=== PATIENT | male | born 1930 | race Caucasian/White ===

== ENCOUNTER 2017-07-17 09:51 | Emergency (ER) | payer MEDICARE, BC ==
--- NOTE | 2017-07-17 11:21 | EDM.PDOC ---
ED HPI GENERAL MEDICAL PROBLEM - General Chief Complaint: Genitourinary Problem Stated Complaint: UTI? Time Seen by Provider: 07/17/17 11:11 Source of Information: Reports: Patient, RN Notes Reviewed History Limitations: Reports: No Limitations - History of Present Illness INITIAL COMMENTS - FREE TEXT/NARRATIVE: 86-year-old gentleman presents to the emergency department today with complaint of urinary tract symptomology, he states he's had frequency and urgency with some dysuria and now he's developed low back pain however the back pain sometimes will radiate into his left leg when he ambulates, he did have a urinary tract infection once about 20 years ago, states is been having symptoms for about 2 weeks however over the last 3 days it has progressively gotten worse. Back Pain Score (Numeric/FACES): 6 - Related Data Allergies Allergy/AdvReac Type Severity Reaction Status Date / Time No Known Allergies Allergy Verified 12/25/15 20:23 Home Meds: Home Meds Albuterol Sulfate [Proair Hfa] 2 puff IH Q6H PRN 03/22/15 [History] Aspirin 325 mg PO DAILY 03/22/15 [History] Cyclobenzaprine [Flexeril] 1 tab PO BEDTIME 03/22/15 [History] Hydrocodone/Acetaminophen [[place] 10-325] 1 tab PO Q4H PRN 03/22/15 [History] Metoprolol Tartrate 100 mg PO DAILY 03/22/15 [History] Naproxen 250 mg PO DAILY 03/22/15 [History] Nystatin [Nystatin Crm] 15 gm TOP BID 03/22/15 [History] Omeprazole 40 mg PO DAILY 03/22/15 [History] Travoprost [Travatan Z 0.004% Ophth Soln] 1 drop EYEBOTH BEDTIME 03/22/15 [ History] Tretinoin [Retin-A 0.025% Cream] 1 applic TOP BEDTIME 03/22/15 [History] amLODIPine [Norvasc] 5 mg PO DAILY 03/22/15 [History] Fluticasone/Vilanterol [Breo Ellipta 200-25 Mcg INH] 1 puff INH QPM 07/09/15 [ History] Umeclidinium [place] [Incruse Ellipta] 1 puff INH QAM 07/09/15 [History] Sulfamethoxazole/Trimethoprim [Bactrim Ds Tablet] 1 each PO BID #10 tablet 07/17 [Rx] Past Medical History HEENT History: Reports: Glaucoma, Hard of Hearing, Impaired Vision Cardiovascular History: Reports: Hypertension, SOB on Exertion Respiratory History: Reports: COPD Other Respiratory History: emphysema Gastrointestinal History: Reports: Cholelithiasis, GERD Genitourinary History: Reports: BPH, Prostate Disorder Other Genitourinary History: prostate cancer Musculoskeletal History: Reports: Other (See Below) Other Musculoskeletal History: rotator cuff Oncologic (Cancer) History: Reports: Malignant Melanoma, Prostate, Other (See Below) Other Oncologic History: gallbladder Dermatologic History: Reports: Melanoma Other Dermatologic History: skin cancer - Infectious Disease History Infectious Disease History: Reports: Chicken Pox, Measles, Mumps - Past Surgical History HEENT Surgical History: Reports: LASIK GI Surgical History: Reports: Cholecystectomy, EGD Male Surgical History: Reports: Prostatectomy, TURP-Transurethral Resection of Prostate Musculoskeletal Surgical History: Reports: Shoulder Surgery Social & Family History - Tobacco Use Smoking Status *Q: Former Smoker Years of Tobacco use: 30 Packs/Tins Daily: 1 Used Tobacco, but Quit: Yes Month/Year Tobacco Last Used: 30 years ago Second Hand Smoke Exposure: No - Caffeine Use Caffeine Use: Reports: Coffee - Recreational Drug Use Recreational Drug Use: No ED ROS GENERAL - Review of Systems Review Of Systems: See Below Constitutional: Reports: Fever (Feverish at home) HEENT: Reports: No Symptoms Respiratory: Reports: No Symptoms Cardiovascular: Reports: No Symptoms GI/Abdominal: Reports: No Symptoms : Reports: Dysuria, Flank Pain, Frequency, Urgency Musculoskeletal: Reports: Back Pain ED EXAM, RENAL/ - Physical Exam Exam: See Below Exam Limited By: No Limitations General Appearance: Alert, WD/WN, No Apparent Distress Respiratory/Chest: No Respiratory Distress GI/Abdominal: Soft, Non-Tender Back Exam: Normal Inspection, Paraspinal Tenderness (Lumbar region). No: CVA Tenderness (R), CVA Tenderness (L), Vertebral Tenderness Course - Vital Signs Last Recorded V/S: Last Vital Signs Temp 95.4 F 07/17/17 10:33 Pulse 74 07/17/17 10:33 Resp 17 07/17/17 10:33 BP 130/71 07/17/17 10:33 Pulse Ox 96 07/17/17 10:33 - Orders/Labs/Meds Labs: Laboratory Tests 07/17/17 Range/Units 10:32 Urine Color Yellow Urine Appearance Slightly cloudy Urine pH 5.0 (4.5-8.0) Ur Specific [place] 1.015 (1.008-1.030) Urine Protein Negative (NEGATIVE) mg/dL Urine Glucose (UA) Normal (NEGATIVE) mg/dL Urine Ketones Negative (NEGATIVE) mg/dL Urine Occult Blood Negative (NEGATIVE) Urine Nitrite Negative (NEGAITVE) Urine Bilirubin Negative (NEGATIVE) Urine Urobilinogen Normal (NORMAL) mg/dL Ur Leukocyte Esterase Negative (NEGATIVE) Urine RBC 0-5 (0-5) Urine WBC Not seen (0-5) Ur Epithelial Cells Rare Amorphous Sediment Rare Urine Bacteria Rare Urine Mucus Moderate Departure - Departure Time of Disposition: 11:20 Disposition: Home, Self-Care 01 Condition: Good Clinical Impression: Dysuria - Discharge Information Prescriptions: Sulfamethoxazole/Trimethoprim [Bactrim Ds Tablet] 1 each PO BID #10 tablet Referrals: Keyon Constantino MD [Primary Care Provider] - Additional Instructions: Start taking the antibiotics, please follow-up with your primary care provider for reevaluation in 3-5 days at which time the urine culture should be available for reassessment - Assessment/Plan Plan: Assessment Acuity = acute Site and laterality = frequency, dysuria, low back pain Etiology = unclear etiology Manifestations = none Location of injury = Home Lab values = urinalysis unremarkable cultures pending Plan I did discuss options with him because his symptomology didn't fit with where his back pain was happy was having frequency and dysuria elected to treat empirically with Bactrim DS 1 tab by mouth twice a day 10 days, a culture is pending should be back in 3-4 days at which time I want him to follow-up with his primary care for reevaluation This note was dictated using [employer] voice recognition software please call with any questions on syntax or nicole.
[2017-07-17 11:25] VITALS: BP 130/71
== END 2017-07-17 11:15 | disposition home or self-care (01) ==
LOC: JP.ED 09:51
DX: R30.0 Dysuria (principal); I10 Essential (primary) hypertension; Z79.899 Other long term (current) drug therapy; Z79.82 Long term (current) use of aspirin; Z87.891 Personal history of nicotine dependence
CPT/HCPCS: 81001; 87086; 99284

== ENCOUNTER 2018-05-10 04:28 | Emergency (ER) | payer MEDICARE, BC ==
[2018-05-10 04:49] VITALS: BP 109/83
--- NOTE | 2018-05-10 05:01 | EDM.PDOC ---
ED HPI GENERAL MEDICAL PROBLEM - General Chief Complaint: Gastrointestinal Problem Stated Complaint: BOWEL ISSUE Time Seen by Provider: 05/10/18 04:45 Source of Information: Reports: Patient, Old Records, RN History Limitations: Reports: No Limitations - History of Present Illness INITIAL COMMENTS - FREE TEXT/NARRATIVE: 87 yo male presents with constipation. Feels like there is stool that he cannot push out due to its diameter. He tried enemas, but cannot retain them. He has some abdominal discomfort. No fever. No vomiting. Appetite has been OK. BM's have been smaller than normal lately. Onset: Gradual Onset Date: 05/08/18 Duration: Day(s):, Getting Worse Location: Reports: Abdomen Quality: Reports: Pressure (mild, lower abdomen) Severity: Mild Improves with: Reports: None Worsens with: Reports: Other (time) Context: Reports: Other (on hydrocodone for pain relief) Associated Symptoms: Reports: No Other Symptoms. 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) (enema) lower abd Pain Score (Numeric/FACES): 2 - Related Data Allergies Allergy/AdvReac Type Severity Reaction Status Date / Time No Known Allergies Allergy Verified 04/06/18 14:03 Home Meds: Home Meds Albuterol Sulfate [Proair Hfa] 2 puff IH Q6H PRN 03/22/15 [History] Aspirin 325 mg PO Q48H 03/22/15 [History] Cyclobenzaprine [Flexeril] 0.5 - 1 tab PO BEDTIME 03/22/15 [History] Hydrocodone/Acetaminophen [[place] 10-325] 1 tab PO Q4H PRN 03/22/15 [History] Metoprolol Tartrate 100 mg PO DAILY 03/22/15 [History] Naproxen 250 mg PO DAILY 03/22/15 [History] Nystatin [Nystatin Crm] 15 gm TOP BID 03/22/15 [History] Omeprazole 40 mg PO DAILY 03/22/15 [History] Travoprost [Travatan Z 0.004% Ophth Soln] 1 drop EYEBOTH BEDTIME 03/22/15 [ History] Tretinoin [Retin-A 0.025% Cream] 1 applic TOP BEDTIME 03/22/15 [History] amLODIPine [Norvasc] 10 mg PO DAILY 03/22/15 [History] Umeclidinium [place] [Incruse Ellipta] 1 puff INH QAM 07/09/15 [History] Fluticasone/Vilanterol [Breo Ellipta 200-25 Mcg INH] 1 puff INH DAILY 05/10/18 [ History] Past Medical History HEENT History: Reports: Glaucoma, Hard of Hearing, Impaired Vision, Other (See Below) Other HEENT History: Dry throat syndrome Cardiovascular History: Reports: Hypertension, SOB on Exertion Respiratory History: Reports: COPD, Other (See Below) Other Respiratory History: emphysema Gastrointestinal History: Reports: Cholelithiasis, GERD Genitourinary History: Reports: BPH, Prostate Disorder, Other (See Below) Other Genitourinary History: prostate cancer Musculoskeletal History: Reports: Other (See Below) Other Musculoskeletal History: rotator cuff Psychiatric History: Reports: Anxiety Oncologic (Cancer) History: Reports: Malignant Melanoma, Prostate, Other (See Below) Other Oncologic History: gallbladder Dermatologic History: Reports: Melanoma, Other (See Below) Other Dermatologic History: skin cancer - Infectious Disease History Infectious Disease History: Reports: Chicken Pox, Measles - Past Surgical History HEENT Surgical History: Reports: LASIK GI Surgical History: Reports: Cholecystectomy, Colonoscopy, EGD, Hernia Repair/ Other Male Surgical History: Reports: Prostatectomy, TURP-Transurethral Resection of Prostate Musculoskeletal Surgical History: Reports: Shoulder Surgery Social & Family History - Tobacco Use Smoking Status *Q: Never Smoker - Caffeine Use Caffeine Use: Reports: Coffee - Recreational Drug Use Recreational Drug Use: No ED ROS GENERAL - Review of Systems Review Of Systems: See Below Constitutional: Reports: No Symptoms HEENT: Reports: No Symptoms Respiratory: Reports: No Symptoms Cardiovascular: Reports: No Symptoms Endocrine: Reports: No Symptoms GI/Abdominal: Reports: Abdominal Pain, Constipation. Denies: Black Stool, Bloody Stool, Diarrhea, Distension, Hematemesis, Hematochezia, Melena, Nausea, Vomiting : Reports: No Symptoms Musculoskeletal: Reports: No Symptoms Skin: Reports: No Symptoms Neurological: Reports: No Symptoms Psychiatric: Reports: No Symptoms ED EXAM, GI/ABD - Physical Exam Exam: See Below Exam Limited By: No Limitations General Appearance: Alert, WD/WN, No Apparent Distress Eyes: Bilateral: Normal Appearance Ears: Normal External Exam, Normal Canal, Hearing Grossly Normal Nose: Normal Inspection, Normal Mucosa, No Blood Throat/Mouth: Normal Inspection, Normal Lips, Normal Oropharynx, Normal Voice, No Airway Compromise Head: Atraumatic, Normocephalic Neck: Normal Inspection Respiratory/Chest: No Respiratory Distress, Lungs Clear, Normal Breath Sounds, No Accessory Muscle Use Cardiovascular: Regular Rate, Rhythm, No Edema GI/Abdominal Exam: Normal Bowel Sounds, Soft, Non-Tender, No Distention Back Exam: Normal Inspection. No: CVA Tenderness (R), CVA Tenderness (L) Extremities: Normal Inspection, Normal Range of Motion, Non-Tender, No Pedal Edema Neurological: Alert, Oriented, CN II-XII Intact, Normal Cognition, No Motor/ Sensory Deficits Psychiatric: Normal Affect, Normal Mood Skin Exam: Warm, Dry, Intact, Normal Color, No Rash Lymphatic: No Adenopathy Course - Vital Signs Last Recorded V/S: Last Vital Signs Temp 35.5 C 05/10/18 04:47 Pulse 63 05/10/18 04:47 Resp 18 05/10/18 04:47 BP 109/83 05/10/18 04:47 Pulse Ox 95 05/10/18 04:47 - Orders/Labs/Meds Orders: Active Orders 24 hr Category Date Time Status Enema [RC] ASDIRECTED Care 05/10/18 05:01 Active Meds: Medications Discontinued Medications Generic Name Dose Route Start Last Admin Trade Name Jalil PRN Reason Stop Dose Admin Polyethylene Glycol 34 gm 05/10/18 05:04 05/10/18 05:21 Miralax PO 05/10/18 05:05 34 gm ONETIME ONE Administration Departure - Departure Time of Disposition: 06:21 Disposition: Home, Self-Care 01 Condition: Good Clinical Impression: Fecal impaction in rectum - Discharge Information *PRESCRIPTION DRUG MONITORING PROGRAM REVIEWED*: No *COPY OF PRESCRIPTION DRUG MONITORING REPORT IN PATIENT LUIS: No Instructions: Fecal Impaction Referrals: Keyon Constantino MD [Primary Care Provider] - Forms: ED Department Discharge Additional Instructions: Take a dose of Miralax daily to prevent future problems. Recheck with your doctor as needed. - My Orders Last 24 Hours: My Active Orders 05/10/18 05:01 Enema [RC] ASDIRECTED - Assessment/Plan Last 24 Hours: My Active Orders 05/10/18 05:01 Enema [RC] ASDIRECTED
[2018-05-10] MEDS ORDERED: Polyethylene Glycol 3350 Powder 17 GM Packet PO ONE (05:04)
== END 2018-05-10 06:24 | disposition home or self-care (01) ==
LOC: JP.ED 04:28
DX: K56.41 Fecal impaction (principal); I10 Essential (primary) hypertension; Z79.899 Other long term (current) drug therapy
CPT/HCPCS: 99284; A9270